=== PATIENT | male | born 1975 | race Two or more races ===

== ENCOUNTER 2017-02-28 09:28 | Emergency (ER) | payer BC, OTHER, SELFPAY ==
[~2017-02-28] VITALS: Ht 175.3 cm; Wt 63.8 kg
[2017-02-28] MEDS ORDERED: DIAZEPAM 5 MG TABLET PO STA (10:02)
[2017-02-28] MEDS ORDERED: DIAZEPAM 5 MG TABLET ONE (10:04)
[2017-02-28 10:31] LABS: BLOOD UREA NITROGEN 16 mg/dL (7-18)
[2017-02-28] MEDS ORDERED: OMNIPAQUE 350 MG/ML, 100ML BOTTLE ONE (11:06)
[2017-02-28] MEDS ORDERED: HYDROcodone/APAP 5/325 TABLET PO STA (11:26)
[2017-02-28] MEDS ORDERED: HYDROcodone/APAP 5/325 TABLET ONE (11:27)
[2017-02-28 12:13] VITALS: BP 111/85
== END 2017-02-28 13:55 | disposition home or self-care (01) ==
LOC: ED 11:45
DX: S16.1XXA Strain of muscle, fascia and tendon at neck level, initial encounter (principal); M54.12 Radiculopathy, cervical region; X58.XXXA Exposure to other specified factors, initial encounter; Y93.89 Activity, other specified; Y99.8 Other external cause status; Y92.89 Other specified places as the place of occurrence of the external cause
CPT/HCPCS: 36415; 70498; 80048; 82040; 85025; 93005; 93880; 99285; Q9967

== ENCOUNTER → 2021-03-22 | Outpatient (CLI) | payer OTHER | END | disposition home or self-care (01) | LOC: CARD 08:42 | PROVIDERS: ATTEND Internal Medicine | DX: R56.1 Post traumatic seizures (principal) | CPT/HCPCS: 95819 ==